=== PATIENT | female | born 1940 | race Caucasian/White ===

== ENCOUNTER 2016-10-26 10:30 | Emergency (ER) | payer MEDICARE, OTHER ==
[~2016-10-26] VITALS: Ht 167.6 cm; Wt 92.5 kg
--- NOTE | ~2016-10-26 | CR63 ---
[facility] A Service of [facility] & [facility] RADIOLOGY TEXT RESULTS PATIENT: IRINA COLLADO LOCATION: [facility] : 36 UNIT #: [id number] AGE: [address]: Martín Lomas DO SEX: F ORDER DR: [id number] [facility] [address] [place], [place] [address] [id number] E MR#: [id number] Acc #: [id number] NAME: IRINA COLLADO : 1940 SEX: F STUDY DATE/TIME: 10/26/2016 12:42 UNIT: [facility] ROOM: STUDY DESCRIPTION: CR Chest 2 View Attending Physician: Martín Lomas D.O. Ordering Physician: Martín Lomas D.O. Primary Care Physician: [facility] MEDICAL IMAGING REPORT This report is preliminary unless electronic signature is present EXAM 2-view chest INDICATION Cough and congestion for 2 days. FINDINGS PA and lateral views of the chest compared to 10/26/2016. Heart and mediastinal contours normal. Lungs are clear. No pleural effusion. IMPRESSION No acute cardiopulmonary findings. Dictated by... Sundar Mansfield M.D. THIS IS AN ELECTRONICALLY VERIFIED REPORT Sundar Mansfield M.D. at 10/27/2016 3:43 PM RPNiki/xavier TD: 10/27/2016 12:56 JOB #: [id number] MEDICAL IMAGING REPORT Page 1 of 1 COPY
--- NOTE | ~2016-10-26 | CR72 ---
[facility] A Service of [facility] & [facility] RADIOLOGY TEXT RESULTS PATIENT: IRINA COLLADO LOCATION: [facility] : 36 UNIT #: [id number] AGE: [address]: Martín Lomas DO SEX: F ORDER DR: [id number] [facility] [address] [place], [place] [address] [id number] E MR#: [id number] Acc #: [id number] NAME: IRINA COLLADO : 1940 SEX: F STUDY DATE/TIME: 10/26/2016 11:40 UNIT: [facility] ROOM: STUDY DESCRIPTION: CR Chest Single View Portable Attending Physician: Martín Lomas D.O. Ordering Physician: Martín Lomas D.O. Primary Care Physician: [facility] MEDICAL IMAGING REPORT This report is preliminary unless electronic signature is present EXAM Portable chest radiograph. INDICATIONS Cough, congestion and sore throat for 2 days. FINDINGS Comparison made to a prior exam of January 01, 2016. Heart size is probably within normal limits for portable technique and patient positioning. There is some prominence of the interstitium, some of which may be exaggerated by patient's partially oblique positioning. Similar findings were present on a prior examination, and a component of underlying chronic bronchitis is now excluded. I do not see any definite acute infiltrates on today's study. No pneumothorax or pleural effusion is seen. There is some left basilar atelectasis versus scarring. Patient is status post right shoulder arthroplasty. Dictated by... Vera Anne M.D. THIS IS AN ELECTRONICALLY VERIFIED REPORT Vera Anne M.D. at 10/27/2016 5:04 PM AFF/lb TD: 10/27/2016 09:57 JOB #: [id number] MEDICAL IMAGING REPORT Page 1 of 1 COPY
[~2016-10-26 10:30] MED LIST: AMOXICILLIN250 MG PO; AMOXIL500 M1 PO; AUGMENTIN PO; BACTRIM DS TABL1 TA1 PO; BENADRYL25 MG PO; CENTRUM SILVER PO; CIPRO PO; DARVOCET-N 1001 TAB PO; DERMACORT1 GM EXT; DOCUSATE SODIU100 MG PO; FEROSUL325 ( 651 PO; FLEXERIL PO; FLONASE16 GM; KEFLEX PO; LEVAQUIN750 MG PO; LORTAB 5/500 TA1 TA1 PO; MACROBID100 MG PO; MAGIC MOUTHWASH PO; MEDROL4 MG/DOSE- PO; MIACALCIN4 ML; MULTIVITAMIN1 UDCAP PO; MYOCALM TABLET1 EACH PO; OS-CAL 500 + D500 MG PO; PYRIDIUM PO; PYRIDIUM100 MG PO; RID150 ML MC; SYNTHROID0.05 MG DOB; SYNTHROID0.05 MG PO; TRIAMCINOLONE AC1 GM EXT; TYLENOL325 M1 PO; VICODIN 5/500 T1 TAB PO; WOMENS STOOL S100 MG PO; ZITHROMAX PO; ZYRTEC10 M2 PO
[2016-10-26 11:34] LABS: POC - CKMB 3.9 ng/mL (0.0-7.9); POC - TROPONIN <0.05 ng/mL (<=0.05)
[2016-10-26 11:34] LABS: INFLUENZA A NEG (NEG); INFLUENZA B NEG (NEG)
== END 2016-10-26 13:30 | disposition home or self-care (01) ==
LOC: CED 10:30
PROVIDERS: Emergency Medicine
DX: J02.9 Acute pharyngitis, unspecified (principal); E03.9 Hypothyroidism, unspecified; K27.9 Peptic ulcer, site unspecified, unspecified as acute or chronic, without hemorrhage or perforation; Z88.1 Allergy status to other antibiotic agents
CPT/HCPCS: 36415; 71010; 71020; 82553; 84484; 87651; 87804; 99283